=== PATIENT | male | born 1960 | race Caucasian/White ===

== ENCOUNTER 2023-08-08 01:09 | Inpatient (IN) | payer MEDICAID ==
[~2023-08-08] VITALS: Ht 172.7 cm; Wt 67.2 kg
[2023-08-08 01:50] LABS: BILIRUBIN,URINE NEGATIVE (Neg); CLARITY,URINE TURBID (Clear); COLOR,URINE AMBER (Yellow); GLUCOSE, URINE 500 mg/dl (Neg); KETONES,URINE NEGATIVE (Neg); LEUKOCYTE ESTERASE ,URINE NEGATIVE (Neg); NITRITES, URINE NEGATIVE (Neg); OCCULT BLOOD,URINE LARGE (Neg); PH,URINE 5.5 (4.8-8.0); PROTEIN,URINE TRACE mg/dl (Neg); UROBILINOGEN,URINE 0.2 E.U/dL (0.2-1.0)
[2023-08-08 01:54] LABS: UA COLLECTION TYPE CLN CATCH MIDSTREAM
[2023-08-08 01:56] LABS: HYALINE CASTS 0-3 /LPF (NEGATIVE); MUCUS STRANDS MODERATE /LPF (Neg); SQUAMOUS EPITHELIAL CELL,UR FEW /LPF (FEW)
[2023-08-08 01:59] LABS: BACTERIA,URINE 3+ /HPF (Neg); RBC,URINE TNTC /HPF (0-2)
[2023-08-08] MEDS ORDERED: normal saline 1000ml 1,000 ML IV ONE ×2 (02:00→03:20)
[2023-08-08] MEDS ORDERED: ondansetron/PF 4mg/2ml inj IV ONE (02:00)
[2023-08-08] MEDS ORDERED: morphine 4 MG/ML inj SYRINge IV ONE (02:00)
[2023-08-08 02:01] LABS: WBC,URINE 0-4 /HPF (0-4)
[2023-08-08 02:17] LABS: BASOPHILS # (AUTO) 0.1 X10'3 (0-0.2); BASOPHILS % (AUTO) 0.5 % (0-1); EOSINOPHILS % (AUTO) 0.2 % (0-6); HEMATOCRIT 44.6 % (42.0-52.0); HEMOGLOBIN 14.9 g/dl (14.0-17.9); LYMPHOCYTES # (AUTO) 2.1 X10'3 (1.1-4.8); LYMPHOCYTES % (AUTO) 14.4 % (21-51); MEAN CORPUSCULAR HEMOGLOBIN 31.7 PG (27.0-31.0); MEAN CORPUSCULAR HGB CONC 33.3 g/dL (33.0-36.5); MEAN CORPUSCULAR VOLUME 95.1 FL (78-98); MEAN PLATELET VOLUME 8.9 FL (7.4-10.4); MONOCYTES # (AUTO) 0.9 X10'3 (0-0.9); MONOCYTES % (AUTO) 6.3 % (2-12); NEUTROPHILS # (AUTO) 11.4 X10'3 (1.8-7.7); NEUTROPHILS % (AUTO) 78.6 % (42-75); PLATELET COUNT 227 X10'3 (140-440); RED BLOOD COUNT 4.69 X10'6 (4.70-6.10); WHITE BLOOD COUNT 14.5 X10'3 (4.5-11.0)
[2023-08-08 02:22] LABS: ALANINE AMINOTRANSFERASE 22 U/L (12-78); ALBUMIN 3.4 G/DL (3.4-5.0); ALBUMIN/GLOBULIN RATIO 0.9 (1.1-1.5); ALKALINE PHOSPHATASE 135 IU/L (46-116); AMYLASE 27 U/L (25-115); ANION GAP 7 (8-16); ASPARTATE AMINO TRANSFERASE 26 U/L (10-37); BILIRUBIN,TOTAL 0.4 MG/DL (0.1-1.0); BLOOD UREA NITROGEN 17 MG/DL (7-18); BUN/CREATININE RATIO 12.1 (10.0-20.0); CALCIUM 9.6 MG/DL (8.5-10.1); CHLORIDE 101 MMOL/L (99-107); GLUCOSE 224 MG/DL (70-104); LIPASE 43 U/L (16-77); POTASSIUM 4.4 MMOL/L (3.5-5.1); SODIUM 134 MMOL/L (135-145); TOTAL CARBON DIOXIDE 25.8 MMOL/L (24-32); TOTAL PROTEIN 7.2 G/DL (6.4-8.2); eCRCL 53 ML/MIN; eGFR 52 ML/MIN
[2023-08-08] MEDS ORDERED: mag hydrox/Alum hydrox/simeth 30ml oral suspension PO PRN (04:05)
[2023-08-08] MEDS ORDERED: acetaminophen 325mg tablet PO PRN ×2 (04:05)
[2023-08-08] MEDS: sodium chloride 0.45% 1,000 ML IV SCH ×2 (04:05→15:07)
[2023-08-08] MEDS ORDERED: morphine 2 MG/ML inj. syringe IV PRN (04:05)
[2023-08-08] MEDS ORDERED: HYDROmorphone inj. 0.5 MG/0.5 ML DISP.SYRIN IV PRN (04:05)
[2023-08-08] MEDS ORDERED: diphenhydrAMINE 50 mg/ml inj IV PRN (04:05)
[2023-08-08] MEDS ORDERED: magnesium hydroxide 30ml (MOM) UD suspension PO PRN (04:05)
[2023-08-08] MEDS ORDERED: diphenhydrAMINE 25mg capsule PO PRN (04:05)
[2023-08-08] MEDS ORDERED: HYDROcodone/acetaminophen 10/325mg tab PO PRN (04:05)
[2023-08-08] MEDS ORDERED: HYDROcodone/acetaminophen 5mg/325mg tablet PO PRN (04:05)
[2023-08-08] MEDS ORDERED: acetaminophen 650mg rectal suppository RC PRN (04:05)
[2023-08-08] MEDS ORDERED: ondansetron 4mg rapidly disintigrating tab PO PRN (04:05)
[2023-08-08] MEDS ORDERED: ondansetron/PF 4mg/2ml inj IV PRN (04:05)
[2023-08-08] MEDS ORDERED: dextrose 50%-water 50ml dispensing syringe IV PRN ×2 (04:15)
[2023-08-08] MEDS ORDERED: MESSAGE TO PHARMACY PO ONE (04:15)
[2023-08-08] MEDS ORDERED: insulin Lispro (HumaLOG) vial - multi-dose SQ SCH (04:15)
[2023-08-08] MEDS ORDERED: DEXTROSE 15 GM of carb/4 tabs (each vial/BOTTLE has 4 tablets) PO PRN ×2 (04:15)
[2023-08-08] MEDS ORDERED: glucagon, human recombinant 1mg kit SUBCUT PRN (04:15)
[2023-08-08] MEDS: morphine 2 MG/ML inj. syringe IV PRN ×2 (04:30→17:47)
[2023-08-08 05:35] LABS: URINE AMPHETAMINE SCREEN POSITIVE (Neg); URINE BARBITUATE SCREEN NEGATIVE (Neg); URINE BENZODIAZEPINES SCREEN NEGATIVE (Neg); URINE CANNABINOID SCREEN NEGATIVE (Neg); URINE COCAINE SCREEN NEGATIVE (Neg); URINE METHADONE SCREEN NEGATIVE (Neg); URINE OPIATE SCREEN POSITIVE (Neg); URINE PHENCYCLIDINE SCREEN NEGATIVE (Neg)
--- NOTE | 2023-08-08 06:37 | NUR ---
RECEIVED REPORT FROM CHE WANG ASSUMING CARE OF PT RESTING QUIETLY RESPS EVEN AND UNLABORED MONITOR LEADS ON AND FUNCTIONING
[2023-08-08] MEDS: CefTRIAXone/D5W-Rocephin 1gm 50 ML IV SCH ×2 (07:42→21:29)
[2023-08-08] MEDS: pantoprazole 40mg Tablet.DR PO SCH (07:42)
[2023-08-08] MEDS: nicotine 21mg patch - 24 hr TD SCH (07:42)
[2023-08-08] MEDS: lisinopril 10 MG tablet PO SCH (07:43)
[2023-08-08] MEDS: docusate sod 100mg capsule PO SCH ×2 (07:44→20:36)
[2023-08-08 07:47] LABS: HEMOGLOBIN A1C 7.5 % (4.5-6.2)
[2023-08-08 07:58] LABS: APTT 26 SECONDS (22-32); PROTHROMBIN TIME 10.3 SECONDS (9.0-12.0)
[2023-08-08 08:07] LABS: MAGNESIUM 1.8 MG/DL (1.5-2.4); PHOSPHORUS 3.7 MG/DL (2.3-4.5)
[2023-08-08] MEDS ORDERED: NO HOME MEDS (12:09)
[2023-08-08] MEDS ORDERED: FLU VACC QS2023-24(6MOS UP)/PF 60 MCG/0.5 ML SYRINGE IM ONE (15:00)
--- NOTE | 2023-08-08 17:43 | NUR ---
1531 report given to bebe tovar now assuming care of pt
--- NOTE | 2023-08-08 17:44 | NUR ---
attempted to given report to neuro floor " the nurse is giving meds she will call you back"
--- NOTE | 2023-08-08 18:53 | NUR ---
ATTEMPTED TO CALL REPORT, NURSE STILL IN REPORT WILL F/U.
[2023-08-08 19:34] VITALS: BP 141/83; PULSE 81; RESP 16; TEMP 97.5; O2SAT 98
[2023-08-08] MEDS ORDERED: temazepam 15mg capsule PO PRN (21:00)
[2023-08-08] MEDS ORDERED: insulin glargine (Lantus) pen - multi-dose SQ SCH (21:00)
[2023-08-08] MEDS ORDERED: tamsulosin 0.4mg capsule PO SCH (21:00)
[2023-08-08 22:00] VITALS: BP 115/59; PULSE 92; RESP 16; TEMP 98; O2SAT 93
[2023-08-09] MEDS: sodium chloride 0.45% 1,000 ML IV SCH ×2 (00:36→10:05)
[2023-08-09 06:00] VITALS: BP 107/70; PULSE 85; RESP 16; TEMP 97.8; O2SAT 96
--- NOTE | 2023-08-09 06:32 | NUR ---
Patient in room [facility] 4023. I have received report from LEXIE Anne and had the opportunity to ask questions and assume patient care.
[2023-08-09 07:08] LABS: BASOPHILS % (AUTO) 0.4 % (0-1); EOSINOPHILS # (AUTO) 0.1 X10'3 (0-0.9); EOSINOPHILS % (AUTO) 1.6 % (0-6); HEMATOCRIT 40.6 % (42.0-52.0); HEMOGLOBIN 13.7 g/dl (14.0-17.9); LYMPHOCYTES # (AUTO) 2.2 X10'3 (1.1-4.8); LYMPHOCYTES % (AUTO) 32.6 % (21-51); MEAN CORPUSCULAR HEMOGLOBIN 32.3 PG (27.0-31.0); MEAN CORPUSCULAR HGB CONC 33.8 g/dL (33.0-36.5); MEAN CORPUSCULAR VOLUME 95.5 FL (78-98); MEAN PLATELET VOLUME 8.5 FL (7.4-10.4); MONOCYTES # (AUTO) 0.5 X10'3 (0-0.9); MONOCYTES % (AUTO) 7.3 % (2-12); NEUTROPHILS # (AUTO) 3.8 X10'3 (1.8-7.7); NEUTROPHILS % (AUTO) 58.1 % (42-75); PLATELET COUNT 194 X10'3 (140-440); RED BLOOD COUNT 4.25 X10'6 (4.70-6.10); RED CELL DISTRIBUTION WIDTH 13.2 % (11.5-14.5); WHITE BLOOD COUNT 6.6 X10'3 (4.5-11.0)
[2023-08-09 07:49] LABS: ALANINE AMINOTRANSFERASE 21 U/L (12-78); ALBUMIN 2.7 G/DL (3.4-5.0); ALBUMIN/GLOBULIN RATIO 0.8 (1.1-1.5); ALKALINE PHOSPHATASE 86 IU/L (46-116); ANION GAP 6 (8-16); ASPARTATE AMINO TRANSFERASE 28 U/L (10-37); BILIRUBIN,TOTAL 0.8 MG/DL (0.1-1.0); BLOOD UREA NITROGEN 15 MG/DL (7-18); CALCIUM 8.6 MG/DL (8.5-10.1); CHLORIDE 103 MMOL/L (99-107); CHOL/HDL RATIO 3.1 (0.00-4.99); CHOLESTEROL 141 MG/DL (0-200); CREATININE 1.07 MG/DL (0.60-1.10); GLUCOSE 130 MG/DL (70-104); HDL CHOLESTEROL 45 MG/DL (35-60); LDL CHOLESTEROL 83 MG/DL (50-100); POTASSIUM 4.1 MMOL/L (3.5-5.1); SODIUM 135 MMOL/L (135-145); TOTAL CARBON DIOXIDE 25.9 MMOL/L (24-32); TOTAL PROTEIN 6.3 G/DL (6.4-8.2); TRIGLYCERIDES 85 MG/DL (20-135); eCRCL 70 ML/MIN; eGFR 70 ML/MIN
[2023-08-09 07:56] VITALS: RESP 16; O2SAT 96
[2023-08-09] MEDS: pantoprazole 40mg Tablet.DR PO SCH (08:12)
[2023-08-09] MEDS: nicotine 21mg patch - 24 hr TD SCH (08:12)
[2023-08-09 08:13] VITALS: BP_SYST 124; PULSE 98
[2023-08-09] MEDS: lisinopril 10 MG tablet PO SCH (08:13)
[2023-08-09] MEDS: docusate sod 100mg capsule PO SCH (08:14)
--- NOTE | 2023-08-09 08:30 | NUR ---
MESSAGE: tee fallon/neuro pt [id number]- Artem Bird- Dr. Oneill said no surgery for patient, would you want me to change him from NPO to Carb Control diet? Thank you.
[2023-08-09] MEDS: CefTRIAXone/D5W-Rocephin 1gm 50 ML IV SCH (10:18)
[2023-08-09 10:20] VITALS: RESP 15
--- NOTE | 2023-08-09 10:36 | NUR ---
as clinical instructor, i reviewed student nurse physical assessment
[2023-08-09] MEDS ORDERED: tamsulosin capsule PO (10:48)
[2023-08-09] MEDS ORDERED: CIPR-202 PO (10:48)
[2023-08-09] MEDS ORDERED: PANT40TA54 PO (10:48)
[2023-08-09] MEDS ORDERED: LISI10TA27 PO (10:48)
[2023-08-09] MEDS ORDERED: ATOR10TA PO (10:49)
[2023-08-09] MEDS ORDERED: METF-1203 PO (10:49)
--- NOTE | 2023-08-09 11:14 | NUR ---
Received order for consult. Met with patient in regards to substance use and to see if patient was interested in resources for treatment options. Patient declined resources.
--- NOTE | 2023-08-09 13:35 | NUR ---
pt was given discharge packet and able to ask questions. pt in stable condition and in no distress, walked down to lobby with all of his belongings and left in private vehicle.
--- NOTE | 2023-08-09 14:32 | NUR ---
Per EMR pt with newly diagnosed T2DM this admit with A1c 7.5%. Pt discharged prior to RD being available for bedside visit. Written DM education with RD contact information mailed to patient's address found in EMR. Per discharge summary pt to begin Metformin and pt received DM education by physician. Will remain available. Addendum: 08/09/23 at [address] Amended: Links added.
== END 2023-08-09 13:35 | disposition home or self-care (01) | DRG 463 ==
LOC: ER 01:10 → ED HOLD 04:13 → EDBEDREQTM 04:23 → EDBEDREQ 16:25 → ORTHO 4S 19:20
PROVIDERS: ADMIT Family Medicine; ATTEND Internal Medicine
DX: N13.6 Pyonephrosis (principal); E11.22 Type 2 diabetes mellitus with diabetic chronic kidney disease; E78.5 Hyperlipidemia, unspecified; E11.65 Type 2 diabetes mellitus with hyperglycemia; K40.90 Unilateral inguinal hernia, without obstruction or gangrene, not specified as recurrent; N18.9 Chronic kidney disease, unspecified; Z72.0 Tobacco use
CPT/HCPCS: 36415; 71045; 74176; 76870; 80053; 80061; 80305; 81001; 82150; 82948; 83036; 83605; 83690; 83735; 83880; 84100; 84145; 84443; 84484; 85025; 85610; 85730; 87040; 87081; 90686; 93306; 93976; 96374; 99285; G0378; J0696; J2270; J2405; J3490; J7030